=== PATIENT | female | born 2000 | race Caucasian/White ===

== ENCOUNTER 2021-03-11 20:48 | Emergency (ER) | payer OTHER, MEDICAID, SELFPAY ==
--- NOTE | ~2021-03-11 | CT_ITS ---
EXAMINATION: CT abdomen pelvis w con INDICATION: Right lower abdominal pain TECHNIQUE: Computed tomographic images of the abdomen and pelvis were obtained after the administrati on of 100 cc of Omnipaque 350 intravenous contrast. The dose-length product (DLP) was 1538.48 mGy-cm. Automated exposure control and iterative reconstruction technique were employed. COMPARISON: None available FINDINGS: The lung bases are clear. The heart size is normal. The gallbladder is surgically absent. T he liver, spleen, pancreas, and adrenal glands are normal. The kidneys are unremarkable. The appendix is normal. No pathologically enlarged abdominal or pelvic lymph nodes are identified. There is no fr ee intraperitoneal gas or evidence of bowel obstruction. Cysts of the left ovary measure up to 4.4 cm . There is mild lumbar spondylosis. A small fat-containing umbilical hernia is noted. IMPRESSION: 1. No CT correlate for the patient's symptoms. Reviewed, dictated and finalized at location A.
[2021-03-11 20:55] VITALS: BP 149/98; PULSE 107; RESP 22; TEMP 36.6; O2SAT 98
[2021-03-11 21:35] LABS: Basophils Absolute Auto 0.1 K/mm3 (0.0-0.1); Basophils Percent Auto 0.5 % (0.2-1.2); Eosinophils Absolute Auto 0.2 K/mm3 (0-0.3); Eosinophils Percent Auto 1.7 % (0-4.4); Hematocrit 38.8 % (37.0-47.0); Hemoglobin 12.8 g/dL (12.0-15.0); Immature Granulocyte Absolute 0.06 K/mm3 (0.00-0.031); Immature Granulocyte Percent A 0.6 % (0-0.5); Lymphocytes Absolute Auto 2.37 K/mm3 (0.9-3.2); Lymphocytes Percent Auto 24.1 % (18.3-44.2); Mean Corpuscular Hemoglobin 28.6 pg (26-34); Mean Corpuscular Volume 86.6 fl (80-100); Mean Platelet Volume 9.1 fl (7.4-10.4); Monocytes Absolute Auto 0.7 K/mm3 (0.1-0.6); Monocytes Percent Auto 6.6 % (2.6-8.5); Neutrophils Absolute Auto 6.5 K/mm3 (1.3-6.7); Neutrophils Percent Auto 66.5 % (45.5-73.1); Platelet Count Result 276 k/mm3 (150-375); Red Blood Count 4.48 M/mm3 (4.2-5.4); Red Cell Distribution Width 13.4 % (11.5-14.5); White Blood Count 9.8 K/mm3 (4.5-10.0)
[2021-03-11 21:48] LABS: Alanine Aminotransferase 19 U/L (4-35); Albumin Level 4.1 g/dL (3.5-5.1); Alkaline Phosphatase 65 U/L (38-126); Anion Gap 10 mmol/L (8-16); Aspartate Amino Transferase 22 U/L (14-36); Bilirubin,Total 0.3 mg/dL (0.2-1.3); Blood Urea Nitrogen 11 mg/dL (7-17); Calcium 8.7 mg/dL (8.4-10.2); Carbon Dioxide 22 mmol/L (22-30); Chloride 108 mmol/L (98-107); Estimated CRCL calculation 163 ml/min; Estimated Glomerular Filt Rate > 60; Glucose 136 mg/dL (65-110); Lipase 47 U/L (23-300); Potassium 3.7 mmol/L (3.4-5.0); Sodium 140 mmol/L (137-145)
[2021-03-11 21:54] LABS: Add Urine Microscopic? YES; Appearance Urine Clear (Clear); Bacteria Urine Trace /hpf; Bilirubin Urine Negative (Negative); Blood Urine 3+ (Negative); Color Urine Yellow (Yellow); Glucose Urine UA Negative (Negative); Ketones Urine Negative (Negative); Leukocyte Esterase Ur Negative LEU/UL (Negative); Mucus Urine Rare /lpf; Nitrate Urine Negative (Negative); Protein Urine 1+ mg/dL (Negative); Squamous Epithelial Cell Urine Many /hpf (Few); Urobilinogen Urine Negative mg/dL (<2.0)
[2021-03-11 21:57] LABS: Specific Grav Ur 1.032 (1.001-1.035)
--- NOTE | 2021-03-11 22:22 | ED.ABDPAIN ---
HPI - Abdominal Pain General Chief Complaint: Abdominal Pain Stated Complaint: LRQ abd pain, nausea Time Seen by Provider: 03/11/21 22:03 Source: patient Mode of arrival: ambulatory Limitations: no limitations History of Present Illness HPI narrative: This is a 21 year old female who presents for evaluation of right lower abdominal pain. Patient states she has had sharp right lower abdominal pain constantly for 3 days. She is currently on her menstrual cycle so she thought her pain was due to that but her pain is getting worse. She had nausea today but denies vomiting, diarrhea. She reports mild pain with urination. She took ibuprofen 400 mg 3 hours ago and her pain is currently 5/10. Related Data Home Medications Medication Instructions Recorded Confirmed aripiprazole mg 03/11/21 drospirenone-ethinyl estradiol tablet 03/11/21 sertraline mg 03/11/21 Allergies Allergy/AdvReac Type Severity Reaction Status Date / Time Penicillins Allergy Severe hives Verified 03/11/21 22:16 Review of Systems Review of Systems: All systems reviewed & are unremarkable except as noted in HPI and below PMFSH Past Medical History Medical History (Updated 03/12/21 @ 01:03 by Milvia Rosas MD) SVT (supraventricular tachycardia) Surgical History Surgical History (Updated 03/11/21 @ 22:28 by Milvia Rosas MD) Hx of cholecystectomy Social History Social History (Updated 03/11/21 @ 22:28 by Milvia Rosas MD) Smoking status: Never smoker Exam Const: General: alert Nutritional Appearance: obese Orientation/consciousness: patient oriented x3 Eyes: Pupils: Equal, round and reactive pupils present EOM: EOMs intact bilaterally Chest: Chest palpation & inspection: normal inspection of the chest Resp: Effort & Inspection: normal respiratory effort and no retractions Auscultation: clear to auscultation bilaterally Cardio: Rate: regular rate Rhythm: regular rhythm Heart sounds: no murmurs GI: GI Palp: Yes Soft to palpation, Yes Tenderness to palpation present (GI) (RLQ), No Guarding due to palpation present (GI) and No Rigid due to palpation Auscultation: normal bowel sounds Back/Spine/Pelvis: Back: no CVA tenderness Skin: General skin exam: normal color Neuro: General: patient oriented x3, moves all extremities and CN's II-XI intact bilaterally Psych: Mental Status: mental status grossly normal Affect: normal affect Course Reevaluation(s) Reevaluation #1: I Discussed with patient CT shows left ovarian cyst and she will need to follow up with her OBGYN. Date: 03/12/21 Time: 01:00 Vital Signs Vital signs: Vital Signs Temperature 97.8 F 03/11/21 20:55 Pulse Rate 107 H 03/11/21 20:55 Respiratory Rate 22 H 03/11/21 20:55 Blood Pressure 149/98 H 03/11/21 20:55 Pulse Oximetry 98 03/11/21 20:55 Temperature 98.7 F 03/11/21 22:24 Pulse Rate 99 03/11/21 23:23 Respiratory Rate 18 03/11/21 23:23 Blood Pressure 113/63 03/11/21 23:23 Pulse Oximetry 99 03/11/21 23:23 MDM - Abdominal Pain Lab Data Attestation: I reviewed the patient's lab results. Result diagrams: 03/11/21 21:29 03/11/21 21:29 Labs: Lab Results 03/11/21 03/11/21 03/11/21 Range/Units 21:29 21:29 21:35 WBC 9.8 (4.5-10.0) K/mm3 RBC 4.48 (4.2-5.4) M/mm3 Hgb 12.8 (12.0-15.0) g/dL Hct 38.8 (37.0-47.0) % MCV 86.6 (80-100) fl MCH 28.6 (26-34) pg MCHC 33.0 (32-36) g/dl RDW 13.4 (11.5-14.5) % Plt Count 276 (150-375) k/mm3 MPV 9.1 (7.4-10.4) fl Immature Gran % (Auto) 0.6 H (0-0.5) % Neut % (Auto) 66.5 (45.5-73.1) % Lymph % (Auto) 24.1 (18.3-44.2) % [place] % (Auto) 6.6 (2.6-8.5) % Eos % (Auto) 1.7 (0-4.4) % Baso % (Auto) 0.5 (0.2-1.2) % Lymph # (Auto) 2.37 (0.9-3.2) K/mm3 [place] # (Auto) 0.7 H (0.1-0.6) K/mm3 Eos # (Auto) 0.2 (0-0.3) K/mm3 Baso # (Auto) 0.1 (0.0-0.1) K/
[2021-03-11 22:24] VITALS: BP 162/80; PULSE 102; RESP 18; TEMP 37.1; O2SAT 99
[2021-03-11] MEDS: KETOROLAC 30 MG/ML VIAL (*BKC) IV PUSH (22:36)
[2021-03-11] MEDS: SODIUM CHLORIDE 0.9% IV 1,000 ML 999 ML IV CONT (22:36)
[2021-03-11] MEDS: ONDANSETRON INJ 4 MG/2 ML VIAL IV PUSH (22:36)
[2021-03-11 23:02] VITALS: BP 145/84; PULSE 99; RESP 18; O2SAT 99
[2021-03-11 23:23] VITALS: BP 113/63; PULSE 99; RESP 18; O2SAT 99
--- NOTE | 2021-03-11 23:23 | PC.NURSE ---
Assumed care of pt at this time. Pt alert and upright on stretcher, rates pain at 4/10. Pt and family updated on POC.
[2021-03-12 01:00] VITALS: BP 117/67; PULSE 92; RESP 16; O2SAT 99
[2021-03-12 01:20] VITALS: BP 115/69; PULSE 91; RESP 18; O2SAT 99
== END 2021-03-12 01:25 | disposition home or self-care (01) ==
PROVIDERS: Emergency Medicine; Emergency Provider General Practice
DX: N83.202 Unspecified ovarian cyst, left side (principal)
CPT/HCPCS: 36415; 74177; 80053; 81001; 81025; 83690; 85025; 96361; 96374; 96375; 99284; J1885; J2405; J7030; Q9967

== ENCOUNTER 2021-06-06 09:34 | Emergency (ER) | payer OTHER, MEDICAID, SELFPAY ==
--- NOTE | ~2021-06-06 | XR_ITS ---
EXAMINATION: XR chest 1V portable DATE: 06/06/2021 10:04 INDICATION: Cough and shortness of breath TECHNIQUE: frontal view of the chest was obtained. COMPARISON: Chest radiograph dated 09/18/2018 FINDINGS: The lungs remain clear with no focal airspace opacities, pulmonary edema, pleural effusion or pneumot horax. The cardiomediastinal silhouette is normal. Visualized bones and soft tissues are unremarkable . IMPRESSION: 1. Normal chest radiograph. Reviewed, dictated and finalized at location A. OR PROJECT MANAGER IMPRESSION: 1. Normal chest radiograph.
[2021-06-06 09:38] VITALS: BP 157/113; PULSE 105; TEMP 37.3; O2SAT 97
--- NOTE | 2021-06-06 09:56 | ED.URI ---
HPI - URI/Sore Throat General Chief Complaint: Upper Respiratory Infection Stated Complaint: covid symptoms Time Seen by Provider: 06/06/21 09:53 Source: patient Mode of arrival: ambulatory Limitations: no limitations History of Present Illness HPI Narrative: Patient presents with coughing, sore throat, body aches, not feeling well, hot and cold feeling. Started yesterday. Patient is not vaccinated for Covid. Patient works in the pain. Related Data Home Medications Medication Instructions Recorded Confirmed aripiprazole mg 03/11/21 drospirenone-ethinyl estradiol tablet 03/11/21 sertraline mg 03/11/21 Allergies Allergy/AdvReac Type Severity Reaction Status Date / Time Penicillins Allergy Severe hives Verified 03/11/21 22:16 Review of Systems Review of Systems: CONSTITUTIONAL: Denies fever, chills, or sweats. EYES: Denies visual changes, redness, or discharge. ENT: Denies rhinorrhea, congestion, sore throat, or otalgia. CARDIOVASCULAR: Denies chest pain, palpitations, or edema. RESPIRATORY: Denies cough or dyspnea. GASTROINTESTINAL: Denies abdominal pain, nausea, vomiting, or diarrhea. GENITOURINARY: Denies dysuria or hematuria. SKIN: Denies rash or itching. MUSCULOSKELETAL: Denies back pain, joint pain, or myalgia. NEUROLOGIC: Denies headache, numbness, or weakness. PSYCHIATRIC: Denies anxiety or depression. PMFSH Past Medical History Medical History SVT (supraventricular tachycardia) Surgical History Surgical History Hx of cholecystectomy Social History Social History Smoking status: Never smoker Exam Narrative: General appearance: Well-developed, well-nourished Skin: Normal color Head: Normocephalic, nontraumatic Eyes: Clear conjunctiva ENT: Oropharynx normal, ears normal, nose normal Neck: Supple, nontender Chest and respiratory: Airway patent, no respiratory distress, no accessory muscle use Heart: Regular rate/rhythm Abdomen: Soft, nontender, no organomegaly, quiet bowel sounds Vascular: Normal peripheral pulses, normal capillary refill. Musculoskeletal: Normal range of motion, nontender back Neurologic: Alert and oriented ?3, CATERING COOK is normal as tested, no gross motor deficit Course Course Emergency Course: Stable Vital Signs Vital signs: Vital Signs Temperature 37.3 C 06/06/21 09:38 Pulse Rate 105 H 06/06/21 09:38 Blood Pressure 157/113 H 06/06/21 09:38 Pulse Oximetry 97 06/06/21 09:38 Temperature 37.3 C 06/06/21 09:38 Pulse Rate 105 H 06/06/21 09:38 Blood Pressure 157/113 H 06/06/21 09:38 Pulse Oximetry 97 06/06/21 09:38 MDM - URI/Sore Throat MDM Narrative Medical decision making narrative: Upper respiratory viral infection is my concern. Covid test ordered. Differential Diagnosis Differential diagnosis: Likely upper respiratory infection Imaging Data Radiologist's impression: Impressions Chest X-Ray 06/06/21 10:08 IMPRESSION: 1. Normal chest radiograph. Critical Care Time Critical Care Time Critical Care Time: No Discharge Plan Discharge Clinical Impression: Upper respiratory infection Qualifiers: URI type: unspecified URI Qualified Code(s): J06.9 - Acute upper respiratory infection, unspecified Patient Disposition: Home, Self-Care Condition: Stable Instructions: Antibiotic Form, Upper Respiratory Infection (ED) Additional Instructions: Return if symptoms are worsening , call your family physician for appointment, take Tylenol as as needed for aches and pain, continue home medi
[2021-06-06 10:37] VITALS: BP 142/93; PULSE 104; RESP 18; O2SAT 95
[2021-06-07 02:02] LABS: SARS-CoV-2 RNA PCR Negative
== END 2021-06-06 10:38 | disposition home or self-care (01) ==
PROVIDERS: Emergency Provider Emergency Medicine
DX: J06.9 Acute upper respiratory infection, unspecified (principal); Z20.822 Contact with and (suspected) exposure to COVID-19
CPT/HCPCS: 71045; 87804; 99283; C9803; U0003; U0005

== ENCOUNTER 2022-09-19 00:32 | Day surgery (SDC) | payer BC, OTHER, SELFPAY ==
[2022-09-10 15:15] VITALS: BMI 54.8
--- NOTE | 2022-09-10 15:22 | PC.NURSE ---
Report to the Outpatient Waiting Room, entrance under the green pavilion located off [facility], at time 0600 on date 09/19/22. Planned Procedure Time: 0730. Time changes happen often and if your time is changed the preop area will call you the afternoon before. - You and your visitor will be asked to self-screen and do not enter if you have any COVID symptoms. - Only one visitor is requested with a max of two and NO children visitors are allowed at this time. - The patient visitor may be requested to leave or wait in car when not with patient due to distancing restrictions. - A mask is optional within the hospital at this time. Patients may have clear liquids (water, carbonated beverages, clear teas, apple juice) until 3 hours prior to surgery with a maximum of 20 ounces. - No food from midnight until time of surgery Take the following medications with a SIP of water the morning of surgery: LEXAPRO, ABILIFY DO NOT STOP ANY OF YOUR OTHER PRESCRIPTION MEDICATIONS PRIOR TO SURGERY?EXCEPT THE FOLLOWING Medications to discontinue per physician: N/A Date to take last dose: N/A Please no make-up, nail lithuanian, hairspray, perfume, deodorant, or body powder the day of surgery. No jewelry (including any body piercings) or valuables the day of surgery, leave them at home. Please take a shower or bath the night before, or the morning of, surgery with an antibacterial soap. Wear comfortable, loose fitting clothing. - Jewelry must be removed prior to entering the operating room. Rings and piercings that are not removed may be cut off. - The hospital will not accept responsibility for valuables. - Please leave all valuables, including medications, at home the day of surgery. If you are going home after surgery, a licensed front end loader driver must drive you home. - NO public transportation without another adult if you receive anesthesia. - We recommend that an adult stay with you for 24 hours following discharge. - We also recommend that you do not drive, make important decision, drink alcoholic beverages, or take any drugs that were not prescribed by your health care provider for at least 24 hours after your discharge time. Follow any additional instructions given to you from your surgeon. If you or anyone in your household have experienced Covid symptoms in the past week, please notify your surgeon or the nurse liaison at the phone number below for possible testing. Telephone instructions given to CATHY LOUISE and asked if any additional questions and then verbalized understanding. Patient advised to call surgeon office or pre surgery nurse liaison [phone] if any additional questions.
[2022-09-19] VITALS (13 sets, daily range): BP systolic 118–158; BP diastolic 70–98; PULSE 72–120; RESP 12–20; TEMP 36.5–37.2; O2SAT 94–100
[2022-09-19] MEDS: KETOROLAC 15 MG/ML VIAL (*BKC) IV PUSH (06:30)
[2022-09-19] MEDS: SCOPOLAMINE 1.5 MG PATCH TRANSDERM (06:30)
[2022-09-19] MEDS: LACTATED RINGERS 1,000 ML 30 ML IV CONT ×2 (06:30→09:27)
[2022-09-19] MEDS: ACETAMINOPHEN 500 MG TABLET 1000 MG PO (06:30)
--- NOTE | 2022-09-19 07:12 | WPDANESEPPF ---
Anes - Initial Pre Proc Eval Procedure: Operation Date: 09/19/22 07:30 Proposed Procedures p Laparoscopic Right Ovarian Cystectomy - Ivan Helms MD Date/Time: 09/19/22 07:12 Surgeon: Ivan Helms MD Pre Op Diagnosis: cyst of ovary Patient Data Age: 22 Gender: F Height: 1.7 m Weight: 158.8 kg Allergies Allergy/AdvReac Type Severity Reaction Status Date / Time Penicillins Allergy Severe hives Verified 09/19/22 07:09 Home Medications Medication Instructions Recorded Confirmed Type aripiprazole 15 mg tablet 15 mg PO DAILY 09/10/22 09/19/22 History drospirenone (contraceptive) 4 mg 1 tablet PO DAILY 09/10/22 09/10/22 History (28) tablet escitalopram oxalate 10 mg tablet 10 mg PO DAILY 09/10/22 09/19/22 History Patient hx anesthesia problems: post op nausea/vomiting Family hx anesthesia problems: none Results Review: All pre-operative results and documents have been reviewed as part of the pre-operative evaluation. [facility] Past Medical History Medical History SVT (supraventricular tachycardia) Surgical History Surgical History Hx of cholecystectomy Social History Social History Smoking status: Never smoker Alcohol intake: current Drinks per week: 2 Substance use: current Substance use type: marijuana Living arrangements: with friend(s) Additional living arrangements comments: BOYFRIEND Spiritual care concerns: No Anes - Eval Final PreProcedure Day of Procedure 09/19/22 07:12 Patient weight: super morbidly obese Heart: regular rate and rhythm Lungs: clear to auscultation Airway: Mallampati scale class III Neurological: alert and oriented Last oral intake: >/= 8 hours ASA classification: III Emergent: no Anesthetic plan: proceed Anesthesia type and monitoring: general ETT and standard monitoring Results Review: All pre-operative results and documents have been reviewed as part of the pre-operative evaluation. Informed Consent: The patient's anesthetic plan and its attendant risks and benefits were discussed with the patient/family/POA. Questions were solicited and answers provided to the satisfaction of the patient/family/POA.
--- NOTE | 2022-09-19 07:19 | WPDHPUPDATE1 ---
History and Physical Update Update Date/Time: 09/19/22 07:19 History and Physical has been reviewed, including an updated exam of the patient. There are NO changes in the patient's condition. Risks, benefits, and alternatives have been discussed and questions answered. Patient agrees to proceed with procedure.
[2022-09-19] MEDS: fentaNYL CITRATE INJ (*CRX) 100 MCG/2 ML VIAL 25 MCG IV PUSH ×8 (09:49→11:26)
--- NOTE | 2022-09-19 09:52 | SUR.PHASEI ---
0952: Simple mask removed.
--- NOTE | 2022-09-19 09:53 | W.PM.PROC2 ---
Procedure Note - Detailed Date of Procedure 09/19/22 Pre-op Diagnosis cyst of ovary , pelvic pain Post-op Diagnosis Same (Large left hydrosalpinx, left ovarian cyst, scarring of the right ovary, and adhesions of the pelvis.) Procedure Performed left ovarian cystectomy, left salpingectomy, adhesiolysis -1 hour, chromopertubation Surgeon Ivan Helms MD Anesthesia General Indications Pelvic pain Findings large left ovarian cyst, large left hydrosalpinx, clubbing of the right fallopian tube, adhesions between the rectum and left adnexa and uterus, some very dense adhesions. Occluded right fallopian tube Description of Procedure The patient was taken to the operating room. She was prepped and draped in the dorsal lithotomy position after induction general anesthesia. A 5 mm incision was made with a scalpel on the abdominal skin in the left upper quadrant of the abdomen. A 5 mm trocar was inserted into the intra-abdominal cavity under direct visualization the scope. In the same fashion a 11 mm left lower quadrant trocar was inserted and a 5 mm infraumbilical trocar was inserted. left salpingectomy was performed using LigaSure cautery and adhesiolysis was performed for 1 hour using blunt and sharp dissection. Using scissors cautery. Left ovarian cystectomy was performed using sharp and blunt dissection, cautery was also applied. hematuria min Interceed was placed over the left adnexa. Left ureter was dissected from pelvic brim to the uterine artery. The pelvis was irrigated. The pneumoperitoneum was reduced. The trocars were removed. Skin was closed with subcuticular 4 micro. The patient's incisions were covered with Dermabond. She was taken recovery room in stable condition. Sponge lap and needle counts were correct x2. Estimated Blood Loss 50 Urine Output -20.0 Complications No immediate complications Condition Stable Disposition Same day
[2022-09-19] MEDS: HYDROmorphone HCL INJ (*CRX) 1 MG/ML SYR 0.5 MG IV PUSH ×2 (10:24→10:29)
[2022-09-19] MEDS: oxyCODONE HCL (*CRX) 5 MG TAB IR PO (11:04)
--- NOTE | 2022-09-19 12:51 | SUR.PHASEII ---
1220 - pt teary eyed. pt denies pain at this time. pt wants stay for awhile longer
== END 2022-09-19 13:07 | disposition home or self-care (01) ==
PROVIDERS: Visit Provider Obstetrics & Gynecology
PROC: (CPT 49320; principal; 2022-09-19 07:30)
DX: N83.202 Unspecified ovarian cyst, left side (principal); N70.11 Chronic salpingitis; N83.8 Other noninflammatory disorders of ovary, fallopian tube and broad ligament; N73.6 Female pelvic peritoneal adhesions (postinfective); N97.1 Female infertility of tubal origin; F12.90 Cannabis use, unspecified, uncomplicated; E66.01 Morbid (severe) obesity due to excess calories; Z68.43 Body mass index [BMI] 50.0-59.9, adult
CPT/HCPCS: 58661; 58662; 88302; 88305; A9270; J1100; J1170; J1885; J2250; J2405; J2704; J2710; J3010; J7030; J7120; Q9968

== ENCOUNTER 2023-01-27 14:05 | Emergency (ER) | payer BC, OTHER, SELFPAY | END 2023-01-27 14:35 | disposition home or self-care (01) | PROVIDERS: Emergency Provider Nurse Practitioner | DX: N39.0 Urinary tract infection, site not specified (principal) | CPT/HCPCS: 81003; 87086; 99213; G0463 ==

== ENCOUNTER 2023-07-22 15:07 | Emergency (ER) | payer BC, OTHER, SELFPAY ==
[2023-07-22 15:23] VITALS: BP 129/92; PULSE 82; RESP 16; TEMP 36.5; O2SAT 100
--- NOTE | 2023-07-22 15:25 | ED.FEMALEGU ---
HPI - Female Genitourinary General Chief complaint: Urogenital-Female Stated complaint: uti symptoms Time Seen by Provider: 07/22/23 15:40 Source: patient and RN notes reviewed Mode of arrival: ambulatory Limitations: no limitations History of Present Illness HPI Narrative: [age] old female presents concern for 4 day history of vaginal itching, soreness in her vaginal area. She denies discharge. She denies dysuria, frequency, urgency. Denies nausea, vomiting, abdominal pain, fever, chills, sweats. Reports chronic back pain. MD elicited complaint: genital itching Related Data Home Medications Medication Instructions Recorded Confirmed aripiprazole 15 mg tablet 15 mg PO DAILY 09/10/22 07/22/23 escitalopram oxalate 10 mg tablet 10 mg PO DAILY 09/10/22 07/22/23 Allergies Allergy/AdvReac Type Severity Reaction Status Date / Time Penicillins Allergy Severe hives Verified 07/22/23 15:17 Review of Systems Review of Systems: CONSTITUTIONAL: Denies malaise, chills, sweats, or fever. CARDIOVASCULAR: Denies chest pain, palpitations, or edema. RESPIRATORY: Denies cough or dyspnea. GASTROINTESTINAL: Denies abdominal pain, nausea, vomiting, diarrhea GENITOURINARY: Denies dysuria, frequency, urgency, suprapubic pressure. Denies flank pain or hematuria. Reports vaginal itching and discomfort SKIN: Denies rash or itching. MUSCULOSKELETAL: Reports chronic back pain. Denies myalgia. All systems reviewed & are unremarkable except as noted in HPI and below PMFSH Past Medical History Medical History SVT (supraventricular tachycardia) Surgical History Surgical History Hx of cholecystectomy Social History Social History Smoking status: Never smoker Alcohol intake: current Drinks per week: 2 Substance use: current Substance use type: marijuana Living arrangements: with friend(s) Additional living arrangements comments: BOYFRIEND Spiritual care concerns: No Comments At time of signature, agree with nursing past medical, surgical, social and family history. There is no relevant family history pertinent to the presenting complaint Exam Narrative: GENERAL: Well-appearing, well-nourished, and in no acute distress. HEAD: Normocephalic. EYES: PERRLA, conjunctivae clear. NECK: Supple. No lymphadenopathy CHEST: Clear to auscultation. No respiratory distress. HEART: Regular rate and rhythm. SKIN: Warm, dry, no rash. NEURO: Alert and oriented x3. PSYCH: Normal mood and affect Course Course Emergency Course: Patient is aware of diagnosis, understands and agrees to treatment plan. Anticipatory guidance given. Patient agrees to follow-up as directed and is aware of reasons to seek care at the emergency department. Portions of this record may have been created with voice recognition software Level of Care: Express Care Visit Vital Signs Vital signs: Vital Signs Temperature 97.7 F 07/22/23 15:23 Pulse Rate 82 07/22/23 15:23 Respiratory Rate 16 07/22/23 15:23 Blood Pressure 129/92 H 07/22/23 15:23 Pulse Oximetry 100 07/22/23 15:23 Temperature 97.7 F 07/22/23 15:23 Pulse Rate 82 07/22/23 15:23 Respiratory Rate 16 07/22/23 15:23 Blood Pressure 129/92 H 07/22/23 15:23 Pulse Oximetry 100 07/22/23 15:23 Reviewed. MDM - Female Genitourinary MDM Narrative Medical decision making narrative: Exam findings and UA show no acute concerns or changes; patient is non-toxic appearing and is in no distress. Patient is appropriate for outpatient treatment and follow-up. Differential Diagnosis Differential diagnosis: Likely urinary tract infection and cystitis Critical Care Time Critical Care Time Critical Care Time: No Discharge Plan Discharge Clinical Impression: Vaginal itching Patient Disposit
== END 2023-07-22 15:53 | disposition home or self-care (01) ==
PROVIDERS: Emergency Provider Nurse Practitioner
DX: N89.8 Other specified noninflammatory disorders of vagina (principal); F12.90 Cannabis use, unspecified, uncomplicated
CPT/HCPCS: 81003; 87086; 99213; G0463

== ENCOUNTER 2024-10-21 15:54 | Emergency (ER) | payer BC, OTHER, SELFPAY ==
[2024-10-21 16:07] VITALS: BP 146/76; PULSE 92; RESP 16; TEMP 36.6; O2SAT 100
--- NOTE | 2024-10-21 16:12 | ED.URI ---
HPI - URI/Sore Throat General Chief Complaint: Upper Respiratory Infection Stated Complaint: throat pain Time Seen by Provider: 10/21/24 16:12 Source: patient, RN notes reviewed and old records reviewed Mode of arrival: ambulatory Limitations: no limitations History of Present Illness HPI Narrative: 24 year old female who presents to [facility] care with complaints of 1.5 weeks of some bilateral ear pain and a few days of sore throat. Patient reports that she has not noted any fevers, chills or body aches or any cough. Patient reports that she has taken some Tylenol for her pain. MD elicited complaint: sore throat and other (ear pain) Pertinent past history: tympanostony tubes (as child) and other (tonsillectomy) Onset (ago): week(s) (1.5 ears, few days sore throat) Pain scale (0-10): 4 Able to tolerate fluids by mouth: Yes Treatments prior to arrival: acetaminophen Related Data Home Medications ?Medication ?Instructions ?Recorded ?Confirmed ?Last Taken ?Type aripiprazole 15 mg tablet 15 mg PO DAILY 09/10/22 07/22/23 09/19/22 05:00 History escitalopram oxalate 10 mg tablet 10 mg PO DAILY 09/10/22 07/22/23 09/19/22 05:00 History Allergies Allergy/AdvReac Type Severity Reaction Status Date / Time Penicillins Allergy Severe hives Verified 10/21/24 16:05 Review of Systems Review of Systems: CONSTITUTIONAL: Denies malaise, chills, sweats, or fever. EYES: Denies visual changes, redness, or discharge. ENT: Reports rhinorrhea, congestion,no sinus pain,bilateral otalgia and positive for sore throat. CARDIOVASCULAR: Denies chest pain, palpitations, or edema. RESPIRATORY: Reports no cough.? Denies dyspnea. GASTROINTESTINAL: Denies abdominal pain, nausea, vomiting, diarrhea SKIN: Denies rash or itching. MUSCULOSKELETAL: Denies myalgia. NEUROLOGIC: Denies headache. All systems reviewed & are unremarkable except as noted in HPI and below PMFSH Past Medical History Medical History Bipolar disorder UTI (urinary tract infection) Anxiety and depression Hidradenitis suppurativa Hx of migraines SVT (supraventricular tachycardia) Surgical History Surgical History History of loop recorder has been removed History of placement of ear tubes History of tonsillectomy H/O cardiac radiofrequency ablation Hx of cholecystectomy Social History Social History Smoking status: Current every day smoker Tobacco type: e-cigarettes/vaping Alcohol intake: current Drinks per week: 2 Substance use: current Substance use type: marijuana Last use: very seldom Living arrangements: with friend(s) Additional living arrangements comments: BOYFRIEND Gender identity (if verbalized by the patient): Female Spiritual care concerns: No Comments At time of signature, agree with nursing past medical, surgical, social and family history. There is no relevant family history pertinent to the presenting complaint Exam Narrative: GENERAL: Well-appearing, well-nourished, obese and in no acute distress. HEAD: Normocephalic EYES: PERRLA, conjunctivae clear ENT: Nares clear, turbinates edematous and erythematous, clear discharge. Mucous membranes moist.Left TM red and bulging, Right TM pearly ruffin with dull light reflex; no tragal tenderness. Oropharynx erythematous without lesions. Tonsils not present and throat without exudate, no drooling, no hoarseness, no trismus, uvula midline.scant post nasal drainage. NECK: Supple. No lymphadenopathy CHEST: Clear to auscultation, breath sounds equal. No wheezing, rhonchi, rales, or stridor. No respiratory distress, speaks in full sentences no cough noted SAO2 100% on room air. HEART: Regular rate and rhythm. No murmur heard. SKIN: Warm, dry, no rash. NEURO: Alert and oriented x3. PSYCH: Normal mood and affect Course Course Emergency Course: Patient is aware of diagnosis, understands and agrees to treatment plan.? Anticipatory guidance given.? Patient agrees to follow-up as directed and is aware of reasons to seek care at the emergency department. Portions of this record may have been created with voice recognition software Level of Care: Express Care Visit Vital Signs Vital signs: Vital Signs Temperature 36.6 C 10/21/24 16:07 Pulse Rate 92 10/21/24 16:07 Respiratory Rate 16 10/21/24 16:07 Blood Pressure 146/76 H 04/30/25 16:07 Pulse Oximetry 100 10/21/24 16:07 Oxygen Delivery Room Air 10/21/24 16:07 Temperature 36.6 C 10/21/24 16:07 Pulse Rate 92 10/21/24 16:07 Respiratory Rate 16 10/21/24 16:07 Blood Pressure 146/76 H 10/21/24 16:07 Pulse Oximetry 100 10/21/24 16:07 Oxygen Delivery Room Air 10/21/24 16:07 Reviewed MDM - URI/Sore Throat MDM Narrative Medical decision making narrative: Differential diagnosis considered: Smith virus, strep pharyngitis, allergic rhinitis, upper respiratory tract infection, sinusitis, rhinosinusitis, nasopharyngitis. viral pharyngitis, otitis media, otitis externa, pneumonia, bronchitis, viral cough syndrome, viral syndrome, and influenza.? Exam findings show no acute concerns or changes; patient is non-toxic appearing and is in no distress.? Patient is appropriate for outpatient treatment and follow-up. Differential Diagnosis Differential diagnosis: Likely upper respiratory infection, otitis media, viral infection, pharyngitis and other (strep pharyngitis) Medical Records Attestation: I reviewed the patient's medical records. Lab Data Attestation: I reviewed the patient's lab results. Lab results narrative: strep screen negative culture sent Labs: Lab Results 10/21/24 Range/Units 16:17 POC Grp A Strep Screen Negative (Negative) reviewed Critical Care Time Critical Care Time Critical Care Time: No Discharge Plan Discharge Clinical Impression: Acute left otitis media Patient Disposition: Home Condition: Stable Instructions: Antibiotic Form, Ear Infection (GEN) Additional Instructions: Increase fluids especially juices and water [id number] cough and cold medicine of your choice for your symptoms Zyrtec, Claritin or Ellyn daily Tylenol or ibuprofen for any fever pain heat to the face 20-30 minutes 4-6 times a day for pain Salt water gargles, throat lozenges or throat sprays as desired Antibiotic as directed--finished the medication If your symptoms persist, change or worsen significantly before you can contact your personal physician then please, without delay, go to the emergency department for further evaluation. Follow-up with PCP in 7-10 days or sooner if needed Follow up with PCP soon in regards to your blood pressure which is elevated above threshold for referral. Blood pressure above 120/80 may indicate pre-hypertension. 146/76 Patient Language: Citizen Of [place] Prescriptions: New cefdinir 300 mg capsule 300 mg PO Q12H Qty: 20 0RF Rx Instructions: take all doses of medication No Action escitalopram oxalate 10 mg Tablet 10 mg PO DAILY aripiprazole 15 mg Tablet 15 mg PO DAILY Follow-up/Referrals: UNKNOWN,DOCTOR [Primary Care Provider] - Time of Disposition: 16:31 Quality Ирина Coma Scale Eyes: Open Verbal: Oriented and Alert Motor: Follows Commands Graham Coma Total Score: 15
[2024-10-21 16:19] LABS: EDSTREPNEGPOS1 Negative (Negative)
--- OUTSIDE RECORDS SUMMARY | 2024-10-21 16:30 | XMS_ITS | Clinical Summary ---
Author Organization [facility] Address [address] [place] [address] Care Team Providers Care Maintenance Helper Name Role Phone Kelle Johnston Primary Care Provider [phone] Desiree Gagnon MD Unavailable [phone] Allergies Active Allergy Reactions Criticality Noted Date Comments Penicillins Hives Medium Medications topiramate (TOPAMAX) 25 mg capsule Take 25 mg by mouth 2 (two) times a day Active TiZANidine (ZANAFLEX) 4 mg capsule Take 4 mg by mouth 3 (three) times a day Active famotidine (PEPCID) 20 mg tablet TK 1 T PO D 0 09/18/2018 Active Active Problems Problem Noted Date Diagnosed Date Vestibular migraine 10/17/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 Supraventricular tachycardia 10/08/2014 Family History Medical History Relation Name Comments Hyperlipidemia Maternal Grandfather Famil y history of hypercholesterolemia - (Added by TW Conv) Hypertension Maternal Grandfather Family history of hypertension - (Added by TW Conv) Cataracts Maternal Grandmother Macular degeneration Mother Relation Name Status Comments Maternal Grandfather Maternal Grandmother Mother Social History Tobacco Use Types Packs/Day Years Used Date Smoking Tobacco: Never Smokeless Tobacco: Never Personal Safety Answer Date Recorded Getting School Help Needed Not on file 08/12 Comments Unknown Sex and Gender Information Value Date Recorded Sex Assigned at Not on file Legal Sex Female 1:59 AM FACE WORKER Gender Identity Not on file Sexual Orientation Not on file Occupation Industry Job Start Date Job End Date Student [employer] Not on file Not on file Not on file Obstetrics History Last Filed Vital Signs Vital Sign Reading Time Taken Comments Blood Pressure 137/76 10/13/2014 1:09 PM CDT Pulse 80 10/13/2014 1:09 PM CDT Temperature - - Respiratory Rate - - Oxygen Saturation - - Inhaled Oxygen Concentration - - Weight 110 kg (242 lb 8.1 oz) 07/15/2015 4:06 PM FACE WORKER Height 167 cm (5' 5.75 ) 07/15/2015 4:06 PM FACE WORKER Body Mass Index 39.44 07/15/2015 4:06 PM FACE WORKER Plan of Treatment Health Maintenance Due Date Last Done Comments Cervical Cancer Screening 1999 Depression Screening 1999 Hepatitis C Screening 1999 Regular Well Visit/Exam 18-64 2017 DTaP/Tdap/Td Vaccine (7 - Td or Tdap) 02/01/2020 01/31/2010, 01/26/2004, 05/13/2000, Additional history exists Covid-19 Vaccine (2023-2 5 season) 2024 09/03/2020, 07/30/2020 Influenza Vaccine (#1) 2024 9, 04/02/2019, 03/28/2018, Additional history exists Hepatitis B Screening Completed 1999 , 1999, 1999 Pneumococcal vaccine <65 Completed 005, 05/13/2000, 01/26/2000, Additional history exists HPV Vaccines Completed 06/05/2010, 01/22, 11/28/2009 Varicella Vaccines Completed 04/28/2014, 01/26/2000 [facility] [employer] Care Teams Maintenance Helper Relationship Specialty Start Date End Date Kelle Johnston [address] [place] [id number] PCP - General Family Medicine 04/29/18 Desiree Gagnon MD [address] [address] Referring Physician Neurology 10/17/18
--- OUTSIDE RECORDS SUMMARY | 2024-10-21 16:31 | XMS_ITS | Referral Summary ---
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 Supraventricular tachycardia 10/08/2014 Social History Tobacco Use Types Packs/Day Years Used Date Smoking Tobacco: Never Smokeless Tobacco: Never Personal Safety Answer Date Recorded Getting School Help Needed Not on file 08/12 Comments Unknown Sex and Gender Information Value Date Recorded Sex Assigned at Not on file Legal Sex Female 1:59 AM DIAMOND ASSORTER Gender Identity Not on file Sexual Orientation Not on file Occupation Industry Job Start Date Job End Date Student [employer] Not on file Not on file Not on file Last Filed Vital Signs Vital Sign Reading Time Taken Comments Blood Pressure 137/76 10/13/2014 1:09 PM CDT Pulse 80 10/13/2014 1:09 PM CDT Temperature - - Respiratory Rate - - Oxygen Saturation - - Inhaled Oxygen Concentration - - Weight 110 kg (242 lb 8.1 oz) 07/15/2015 4:06 PM DIAMOND ASSORTER Height 167 cm (5' 5.75 ) 07/15/2015 4:06 PM DIAMOND ASSORTER Body Mass Index 39.44 07/15/2015 4:06 PM DIAMOND ASSORTER Plan of Treatment Not on file Insurance [facility] [employer] Address: [address] [address] [employer] [place] [employer] [facility] [employer] Address: [address] [address] Care Teams Water Regulator And Valve Repairer Relationship Specialty Start Date End Date Kelle Johnston [address] [place] [phone] PCP - General Family Medicine 04/29/18 Desiree Gagnon MD [address] [place] [id number] Referring Physician Neurology 10/17/18
--- OUTSIDE RECORDS SUMMARY | 2024-10-21 16:31 | XMS_ITS | Data Portability ---
Author Organization [facility] [place] Address [address] [place] [place] [address] [place] [address] Assessment No assessment recorded. Plan of Treatment Reminders Order Date Submit Date Provider Last Modified By Organization Details Last Modified Time Details Appointments None recorded. Lab None recorded. Referral None recorded. Procedures None recorded. Surgeries laparoscopi c ovarian cystectomy (SURG) 2021 023 [facility] [place], [address], [place], [address], 19:00:47 Imaging US, transvagina l 2021 022 [email or web address] [place], [address], [address], [place], [address], 17:59:03 Medication Orders None recorded. Patient TargetsNo targets recorded. Patient InstructionsNo instructions recorded. Reason for Referral None Reported. Results Created Date Observation Date Name Description Value Unit Range Abnormal Flag Note LastModifiedBy Organization Detail LastModifiedTime 05/21/2005/21/2022 US, trans vagin al No observ ation record ed. [email or web address] [place] [address], [place], [address], 05/21/2022 17:49:55 05/21/20 22 05/21/2022 US, trans vagin al No observ ation record ed. [email or web address] [address] [address], [place], [address], 05/21/2022 22:21:37 Result Notes None recorded. Procedures Surgical History Date Name Laterality Status Provider Name and Address Organization Details Recorded Time 09/20/19 23 LAPAROSCOPIC OVARIAN CYSTECTOMY (SURG) completed [facility] 09/27/2022 11:10:31 09/20/19 23 LAPAROSCOPIC OVARIAN CYSTECTOMY (SURG) completed [facility] 09/27/2022 11:10:07 08/25/19 22 Date of Last Pap Smear completed [facility] 10/21/2021 08:50:27 06/24/19 21 fluoroscopy of heart for checking of position of cardiac monitoring implant position completed [facility] 10/21/2021 12:31:52 06/24/19 20 Unlisted px femur/knee completed [facility] 10/21/2021 12:31:23 06/24/19 20 cholecystectomy completed [facility] 10/21/2021 12:31:37 06/24/19 15 procedure on forearm completed [facility] 10/21/2021 12:32:25 06/24/19 04 Tonsillectomy completed [facility] 10/21/2021 12:30:30 Tonsillectomy completed Jocelin Anderson [facility] 12/12/2021 13:37:53 Imaging Results Imaging Date Name Status LastModified by Organization Details LastModified Time 05/21/2022 US, transvaginal completed [email or web address] [place] [address], [place], [address], 05/21/2022 17:49:55 05/21/2022 US, transvaginal completed [email or web address] [address], [place], [address], 05/21/2022 22:21:37 Procedure Notes None recorded. Medical Equipment None Reported. Allergies Allergen ID Allergen Name Allergen Category Reaction Reaction Severity Criticality Documentation Date Start Date Code Code System Note Provider Name and Address Organization Details Recorded Time Penicilli n Not available hives moderate Not available 08/10/2021 09946 RxNorm Jocelin Anderson [facility] 11:22:25 Medications Name Sig Start Date Stop Date Status Note LastModified by Organization Details LastModified Time clindamycin HCl 300 mg capsule 12/12 completed Not Available Not Available Not Available ibuprofen 800 mg tablet 10/21 completed Not Available Not Available Not Available hydrocodone 5 mg-acetamino phen 325 mg tablet TAKE 1 TABLET BY MOUTH EVERY 4 HOURS NEEDED FOR PAIN active Not Available Not Available No t Available sertraline 100 mg tablet TAKE 2 TABLETS BY MOUTH DAILY active Not Available Not Available No t Available metronidazol e 500 mg tablet TAKE 1 TABLET BY MOUTH EVERY 12 HOURS FOR 7 DAYS active Not Available Not Available No t Available lorazepam 0.5 mg tablet prn active Not Available Not Available Not Available ergocalcifer ol (vitamin D2) 1,250 mcg (50,000 unit) capsule TAKE 1 CAPSULE BY MOUTH EVERY WEEK active Not Available Not Available No t Available escitalopram 10 mg tablet TAKE 1 TABLET BY MOUTH DAILY active Not Available Not Available No t Available aripiprazole 10 mg tablet 10/21 completed Not Available Not Available Not Available aripiprazole 15 mg tablet TAKE 1 TABLET BY MOUTH EVERY DAY active Not Available Not Available No t Available aripiprazole 5 mg tablet 08/24 completed Not Available Not Available Not Available chlorhexidin e gluconate 0.12 % mouthwash 12/12 completed Not Available Not Available Not Available Lo Loestrin Fe 1 mg-10 mcg (24)/10 mcg (2) tablet Take 1 tablet every day by oral route for 90 days. 10/21 completed Not Available Not Available Not Available Nextstellis 3 mg-14.2 mg (28) tablet Take 1 tablet every day by oral route for 90 days. 2021 active Lot: [id number] , Exp Not Available Not Available Not Available Vitals Date Recorded Body height Body mass index (BMI) Body weight Systolic blood pressure Diastolic blood pressure Provider Name and Address Organization Details Last Updated DateTime 05/23/2022 166.37 cm 57.4 kg/m2 069800.3 3 g 137 mm[Hg] 86 mm[Hg] [facility] 2 18:08:12 Date Recorded Body height Body mass index (BMI) Body weight Systolic blood pressure Diastolic blood pressure Provider Name and Address Organization Details Last Updated DateTime 09/12/2022 166.37 cm 56.5 kg/m2 265642.3 7 g 133 mm[Hg] 83 mm[Hg] [facility] 3 18:01:05 Date Recorded Body height Body mass index (BMI) Body weight Systolic blood pressure Diastolic blood pressure Provider Name and Address Organization Details Last Updated DateTime 09/26/2022 166.37 cm 57 kg/m2 071163.1 4 g 139 mm[Hg] 83 mm[Hg] [facility] 3 18:14:18 Social History Question Answer Notes LastModified by Organizat ion Details LastModified Time Tobacco Smoking Status Never Smoker [facility] 02/05/2022 12:29:12 Do You Have An Advance Directive? No Information n ot available 08/10/2021 What Is Your Level Of Alcohol Consumption? Occasional Information not available 08/10/2021 How Many Years Have You Consumed Alcohol? 2 Information not available 08/10/2021 Are You Blind Or Do You Have Difficulty Seeing? No Information n ot available 08/10/2021 What Is Your Level Of Caffeine Consumption? Moderate Information not available 08/10/2021 How Much Tobacco Do You Chew? None Information not available 08/10/2021 In The 14 Days Before Symptom Onset, Have You Had Close Contact With A Laboratory-confirm ed COVID-19 While That Case Was Ill? No Information n ot available 08/10/2021 In The 14 Days Before Symptom Onset, Have You Had Close Contact With A Person Who Is Under Investigation For COVID-19 While That Person Was Ill? No Information not available 08/10/2021 Have You Been To An Area Known To Be High Risk For COVID-19? No Information not available 08/10/2021 Are You Deaf Or Do You Have Serious Difficulty Hearing? No Information not available 08/10/2021 What Type Of Diet Are You Following? REGULAR Information n ot available 08/10/2021 What Is The Highest Grade Or Level Of School You Have Completed Or The Highest Degree You Have Received? [id number] Information not available 08/10/2021 What Is Your Occupation? [employer] Information not available 08/10/2021 Are There Any Guns Present In Your Home? No Information not available 08/10/2021 Do You Use Protection During Sex? No Information not available 08/10/2021 Do You Use Your Seat Belt Or Car Seat Routinely? Yes Information not available 08/10/2021 Do You Have Smoke And Carbon Monoxide Detectors In Your Home? Yes Information not available 08/10/2021 How Much Tobacco Do You Smoke? No Information not available 08/10/2021 Do You Feel Stressed (tense, Restless, Nervous, Or Anxious, Or Unable To Sleep At Night)? [id number] Information not available 08/10/2021 Do You Use Any Illicit Or Recreational Drugs? No Information not available 08/10/2021 Do You Use Sunscreen Routinely? No Information not available 08/10/2021 Have You Used IV Drugs? No Information not available 08/10/2021 Sex: Unknown Functional Status Question Answer Note LastModified by Organizat ion Details LastModified Time Do you have difficulty walking or climbing stairs? No [email or web address] Information not available 02/05/2022 Are you able to walk? YESWOREST Information not available 08/10/2021 Are you able to care for yourself? Yes Information not available 02/05/2022 Do you have difficulty dressing or bathing? No [email or web address] Information not available 02/05/2022 What is your exercise level? Occasional Information not available 08/10/2021 Mental Status None recorded. Family History Nothing Reported. Medical History Condition Response Allergies (Food, seasonal, environmental ) N Other N Drug/Latex Allergies/Reactions Y Blood Transfusion N Breast Cancer N Dermatologic Disorders N Lung Disease N Defects or Inherited Disease N Breast Problem N Gestational Diabetes N Hematologic disorders N Anesthesia Complications N History of STI N Deep Vein Thrombosis N Polycystic ovary syndrome N Anxiety Disorder Y Autoimmune disease N Arthritis N Polyps N Infertility N Acid Reflux (GERD) N History of abnormal pap N Cancer N Varicosities N Stroke N Neurologic/Epilepsy Y Endometriosis N High Cholesterol N Fibromyalgia N Headaches Y Kidney Disease N Heart Problems Y Thyroid Problems N Kidney or Bladder Problems N GI Problems N Eating Disorder N Anemia N Art (IVF or FET) N Psychiatric Illness Y Ovarian Cancer N Diabetes N Pulmonary (TB, Asthma) N Hepatitis/Liver Disease N No Past Medical History N Eczema N Urinary Tract Infection N Abuse/Domestic Violence N Asthma N Trauma/Violence N Depression/ depression Y Heart Disease Y Pre-Eclampsia N Hypertension N Osteoporosis N Thrombophilias N Gynecological History Statement/Question Response Date of LMP 11/22/2021 On BCP's at Conception? N N Was last menstrual period normal Y STIs/STDs N HPV Vaccine Y Duration of Flow (days) 5 Current Control Method BCPs Date of control 08/22/2021 Are cycles usually normal N Frequency of Cycle (Q days) 38 Sexually Active? Y BCPs Menses Monthly N Age of first menstrual cycle 9 Date of Last Pap Smear 08/24/2021 Sexual Problems? N Desired Control Method BCPs LMP Approximate N Obstetrics History GPAL:G 0 P 0 0 0 0 Type Value Living 0 Total 0 Past Encounters Encounter ID Performer Location Encounter Start Date Encounter Closed Date Diagnosis/Indication Diagnosis SNOMED-CT Code Diagnosis ICD10 Code Diagnosis Note [id number] Olive Tuttle , [facility] [address] [address] 08/10/2021 11:00:39 08/10/2021 12:38:00 Secondary amenorrhea 957284485 N91.1 Today we agreed to pursue updated US/Labs since UPT is neg and then RTO for WWE & discussion of these test results. She is in agreement of this plan of care at this time. Time spent in visit is a total of 32 mins with at least 50% of visit consisting of counseling and review of plan of care.Addit ional precaution godwin measures were taken to minimize potential exposure to the Covid-19 virus during this patient s visit, including available hand education professional upon arrive, temperatur e check and being asked a series of screening questions. All staff wore face coverings during this encounter, as well as provided additional cleaning and sanitizing of all surfaces, including countertop s, pens, chairs, door handles, light switches, etc, prior to and following the patient s visit. Irregular periods 808777 07 N92.6 [id number] Owen Helms MD [place] [address] [address] 08/17/2021 13:58:31 08/17/2021 15:08:06 Amenorrhea 28402935 N91.2 [id number] Olive Tuttle [facility] [address] [address] 08/24/2021 11:57:19 08/24/2021 13:39:13 Gynecologic examination 01649459 Z01.419 Take Calcium with Vitamin D 1200mg daily if not receiving in daily diet. It is strongly advised to have an annual flu shot and up can obtain at most pharmacies . If you have not had a TDap shot in the last 10 years you should obtain one as well. Discussed with patient & provided with informatio n regarding Gardisil vaccine to prevent the 4 strains for HPV that cause cervical cancer if under age 26. Encourage safe sexual practices, to use condoms and limit partners if not already in a monogamous relationsh ip. Do monthly self breast exams. Have mammogram yearly or every other year depending on family history. BRCA testing is now available for patients with strong genetic history of female cancer. If interested contact the office. Engage in daily exercise of low impact aerobic exercise 45-60 minutes 4-5 times weekly. Avoid tobacco and illicit drugs as well as using moderation with alcohol intake less than 1-2 8 oz beverages daily. This lifestyle behavior pattern will lead to less health conditions and longer life span. If BMI greater than 25 weight watchers or dietary consult advised. Patient received above instructio ns, and questions have been answered. If you have any questions please call or respond to this email. Patient was made aware of the patient portal and may obtain a paper copy of today's plan if desired. Pap/stdsen tGenetic screen discussed Secondary amenorrhea 156 614073 N91.1 TVUS reviewedLe ft ovarian cysts presentShe has no sx's except for irregular cycle intervals. So we agreed to do 3mos Lo loestrin fe and r/p TVUS in 6-8wks to check on these cysts.She is aware to call sooner if sx's change otherwise can start her OCP & use back up method x 4wks if [place]. [id number] Olive Tuttle , [facility] [address] [address] 10/21/2021 12:16:07 10/21/2021 13:02:14 Cyst of left ovary [id number] 7946032 N83.202 We reviewed TVUS & compared it to her last US 07/2021.It has shown some improvemen t.She is having no pain and periods have returned although somewhat irregular with some spotting occurring despite compliance . Today we discussed options.Sh e would like to avoid surgical interventi on if possible so we agreed to monitor another 6-8wks with r/p US and we will change her BCP then f/u to discuss.If anything changes we discussed ED precaution s and risks of ovarian torsion.Wi ll use back up method with switch in BCP.Unders tands that moving forward an MD consult may be necessary and she is open to this. Demolitionist:Di scussed all control options in great detail. Pt would like to start ocp. She is aware of the risks and benefits. She does not have any medical condition that is contraindi cated with the use of estrogen containing control. Pt will start her pills on the first saturday following the start of her period. She is aware it is not effective for control the first month. She is also aware of the importance of taking at the same time every day. Encouraged use of condoms as the pill does not protect against STD's. Will return in 3 months for med check. Consent was read and signed. Pt verbalized understand ing. Time spent in visit is a total of 30 mins with at least 50% of visit consisting of counseling and review of plan of care. [id number] Owen Helms MD [place] [address],[place] [address] 10/19/2021 14:57:44 10/19/2021 15:37:06 Cyst of right ovary [id number] 4220163 N83.291 N83.292 [id number] Owen Helms MD [place] [address],[place] [address] 12/07/2021 13:57:48 12/07/2021 14:46:09 Cyst of left ovary [id number] N83.202 [id number] lOive Tuttle [facility] [address],[place] [address] 12/12/2021 13:31:02 12/12/2021 14:20:11 Cyst of ovary 89429456 N83.209 Discussed TVUS resultsInc rease in ovarian size but still less than 4cm & no sx's per pt.She opts to r/p US in 6wks and continue on new BC.She understand s that if this cysts/area s of concern remain or increase in size that an MD consult is required after this point.Toapril y we agreed to r/p us x 6wks with ED precaution s. Patient is to contact office or go to nearest ED/Urgent care if fever >/= 100.1, pain, excessive bleeding, unusual drainage or swelling in area of concern; or experienci ng worsening sx's or new onset of concerning sx's. Understand ing verbalized . All questions answered to patient satisfacti on. Time spent in visit is a total of 26 mins with at least 50% of visit consisting of counseling and review of plan of care. Irregular periods 771446 07 N92.6 Doing exceptiona lly well on Nextstilli s.Adequate ly regulated her cycles.Neg dysmenorrh ea.No neg se'sWishes to continue. Vitamin D deficiency 347 62961 E55.9 R/P labsWill determine if need to continue high dose brandyn D therapy. [id number] Owen Helms MD [place] [address],[place] [address] 02/05/2022 12:28:49 02/05/2022 13:38:31 Cyst of left ovary 7929312522 [id number] N83.292 [id number] Owen Helms MD [place] [address] [address] 02/21/2022 14:58:12 02/21/2022 16:18:12 Mass of ovary 021760749 R19.09 this patient is a 22-year-ol d female with ovarian cysts and irregular bleeding. She has some findings on her ovaries there are unusual. She has a couple of solid lesions. I believe they are benign. Given her age they are almost certainly benign, however, I recommende d that we continue to follow these. She return in 3 months for repeat ultrasound . Talked about polycystic ovarian syndrome. We spent over 40 minutes face-to-fa ce. Talked about prevention of endometria l cancer. Talked about the pathophysi ology of polycystic ovarian syndrome. Talked about her current treatment. We talked about spironolac tone. Talked about her still some. Talked about her acne and how OCPs combined hormone and metformin lower androgens and how spironolac tone works for stemming the progressio n of her hirsutism. She will follow-up in 3 months for pelvic ultrasound and to see me. [id number] Owen Helms MD [place] [address],[facility] [place] [address] 05/21/2022 16:49:55 05/21/2022 17:59:03 Cyst of left ovary [id number] N83.292 Ultrasound scan abnormal [id number] R93.89 [id number] Owen Helms MD [place] [address],[facility] [place] [address] 05/23/2022 17:44:05 05/25/2022 14:21:42 Cyst of ovary 74843138 N83.209 this patient is a 22-year-ol d female presents for follow-up on ovarian mass. She has a vascular ovarian mass that has persisted over several months. It is a concern. It is irregular and vascular. We have agreed to remove the lesion. It may be a dermoid. Diagnosis is required here. We need to rule anything life-threa tening. We have agreed to laparoscop ic ovarian cystectomy . We spent over 40 minutes face-to-fa ce. More than 50% was counseling . We made a decision to perform surgery. Talked about risk in detail. Talked about alternativ es. Reviewed the ultrasound results together. I showed her images. [id number] Owen Helms MD [place] [address] [address] 09/12/2022 17:51:59 09/13/2022 15:07:03 Cyst of ovary 56648556 N83.209 this patient is a 22-year-ol d female who has a painful ovarian cyst. We have agreed to perform laparoscop ic right ovarian cystectomy . She understand s risks, benefits, and alternativ es. She has completed the informed consent process and is ready to proceed. [id number] Owen Helms MD [place] [address] [address] 09/21/2022 09:54:23 09/21/2022 10:14:18 [id number] Owen Helms MD [place] [address] [address] 09/26/2022 17:50:06 09/27/2022 10:52:03 Postoperative care 788742430 Z48.89 THIS PATIENT IS A 22-YEAR-OL D FEMALE WHO PRESENTS FOR POSTOP FOLLOW-UP. SHE IS POSTOP LEFT SALPINGECT MELISSA AND OVARIAN CYSTECTOMY . SHE ALSO HAD A tubal dye study. She had a left hydrosalpi nx and a blunted clubbed right fallopian tube. Dye could not be passed by the right tube and the left tube was excised. She has a limited possibilit y of getting . We discussed these findings and their implicatio ns. We discussed future . We discussed reproducti ve technology . She will follow-up as needed. Her incisions are clean dry and intact but there is some skin sensitivit y to the glue. She was given recommenda tions. Health Concerns Section Related Observation LastModified by Organization Detai ls LastModified Time None Recorded Concern Status LastModified by Organization Details LastModified Time None Recorded Advance Directives Directive N: Payers Encounter Date Sequence Insurance Name Policy Number Policy Patel Covered Member ID Aptel Member ID Guarantor Name 05/21/2022 1 [place] [id number] La Arcos Mason [id number] La Arcos Mason 05/21/2022 2 [employer]PPO) [facility] Liliana Josselyn Mason [id number] La Arcos Mason 05/23/2022 1 [place] [id number] La Josselyn Mason [id number] La Arcos Mason 05/23/2022 2 [employer]PP[employer] BH[facility]SP Liliana L Mason [id number] La Arcos Mason 09/12/2022 1 [place] [id number] La Josselyn Mason [id number] La L Mason 09/12/2022 2 [employer]PPO) [facility] Liliana L Mason [id number] La Arcos Mason 09/19/2022 1 [place] [id number] La Josselyn Mason [id number] La Arcos Mason 09/19/2022 2 [employer]PPO) [facility] Liliana L Mason [id number] La Arcos Mason 09/26/2022 1 [place] [id number] La Josselyn Mason [id number] La Arcos Mason 09/26/2022 2 [employer] [facility]PPO) [facility] [id number] La Josselyn Mason Notes Date Note Type Note Provider Name and Address Organization Details Recorded Time 05/23/2022 text/html this patient is a 22-year-old female presents for follow-up on ovarian mass. She has a vascular ovarian mass that has persisted over several months. It is a concern. It is irregular and vascular. We have agreed to remove the lesion. It may be a dermoid. Diagnosis is required here. We need to rule anything life-threatening. We have agreed to laparoscopic ovarian cystectomy. We spent over 40 minutes [id number]. More than 50% was counseling. We made a decision to perform surgery. Talked about risk in detail. Talked about alternatives. Reviewed the ultrasound results together. I showed her images. Owen Helms MD [address], [place], [address], [facility] 05/24/2022 22:03:52 09/12/2022 text/html Her this patient is a 22-year-old female with a painful ovarian cyst. We have agreed to perform laparoscopic ovarian cystectomy. She understands the procedure. The patient understands the procedure. The procedure was described to the patient in great detail. the patient also understands the risks. The risks were also explained in detail. She understands that injuries May occur during surgery. She understands these injuries can result in hospitalization, more surgery, and severe illness. She understands there is risk of hemorrhage and infection. Owen Helms MD [address], [place], [address], [facility] 09/12/2022 22:08:39 09/26/2022 text/html THIS PATIENT IS A 22-YEAR-OLD FEMALE WHO PRESENTS FOR POSTOP FOLLOW-UP. SHE IS POSTOP LEFT SALPINGECTOMY AND OVARIAN CYSTECTOMY. SHE ALSO HAD A tubal dye study. She had a left hydrosalpinx and a blunted clubbed right fallopian tube. Dye could not be passed by the right tube and the left tube was excised. She has a limited possibility of getting . We discussed these findings and their implications. We discussed future . We discussed reproductive technology. She will follow-up as needed. Her incisions are clean dry and intact but there is some skin sensitivity to the glue. She was given recommendations. Owen Helms MD [address], [place], [address], [facility] 09/26/2022 18:58:58 OBGyn Episode No OBEpisode recorded.
--- OUTSIDE RECORDS SUMMARY | 2024-10-21 16:31 | XMS_ITS | Clinical Summary ---
Author Organization [facility] [address] Address [address] [place] [address] Care Team Providers Care Fraternity Adviser Name Role Phone Unavailable Primary Care Provider Unavailabl e Source Comments [facility] [address],non-owned Affiliates and Associated Physician Practices is amultiple site organization consisting of ambulatory clinics and hospital sitesin [place], [place], [place] and [place]. This disclosure is being madepursuant to the Care Everywhere program and may not contain all information available regarding this patient. Last updated 18.[facility] [address] Social History Tobacco Use Types Packs/Day Years Used Date Smoking Tobacco: Never Assessed Comments Unknown Sex and Gender Information Value Date Recorded Sex Assigned at Not on file Legal Sex Female 3:10 PM CDT Gender Identity Not on file Sexual Orientation Not on file Plan of Treatment Health Maintenance Due Date Last Done Comments HIV SCREENING 2014 HPV VACCINE (1 - 3-dose series) 2014 CHLAMYDIA/GONORRHEA SCREENING 2015 HEPATITIS C SCREENING 01/18/2017 DTAP/TDAP/TD VACCINES (1 - Tdap) 2018 HEPATITIS B VACCINE (1 of 3 - 19+ 3-dose series) 2018 COVID-19 VACCINE (3 - season) 2024 09/03/2020, 08/06/2020 DEPRESSION SCREENING 06/24/2024 INFLUENZA VACCINE (Season Ended) 2025 04/07/2019, 04/02/2019, 03/28/2018, Additional history exists ZOSTER VACCINE (1 of 2) 2049 HIB VACCINE Aged Out No longer eligi ble based on patient's age to complete this topic MENINGOCOCCAL (Group B) VACCINE SHARED DECISION-MAKING Aged Out No longer eligible based on patient's age to complete this topic MENINGOCOCCAL GROUPS A/C/Y/W VACCINE Aged Out No longer eligible based on patient's age to complete this topic PNEUMOCOCCAL VACCINE Aged Out No long er eligible based on patient's age to complete this topic
== END 2024-10-21 16:37 | disposition home or self-care (01) ==
PROVIDERS: Emergency Provider Registered Nurse
DX: H66.92 Otitis media, unspecified, left ear (principal); F17.290 Nicotine dependence, other tobacco product, uncomplicated; F12.90 Cannabis use, unspecified, uncomplicated; F41.9 Anxiety disorder, unspecified; F32.A Depression, unspecified
CPT/HCPCS: 87081; 87880; 99213; G0463

== ENCOUNTER 2024-10-31 12:25 | Emergency (ER) | payer BC, OTHER, SELFPAY ==
[2024-10-31 12:40] VITALS: BP 134/50; PULSE 94; RESP 18; TEMP 36.5; O2SAT 100
--- NOTE | 2024-10-31 13:18 | ED.GENADULT ---
HPI - General Adult General Chief complaint: Upper Respiratory Infection Stated complaint: Ear Pain/Sore Throat/ Eye Irritation Time Seen by Provider: 10/31/24 13:18 Source: patient Mode of arrival: ambulatory Limitations: no limitations History of Present Illness HPI narrative: 44-year-old female patient presents complaints of bilateral ear appeared in for throat for the last week and a half to 2 weeks. Patient was seen at [facility] with symptoms 1st started was given cefdinir for ear infection. Patient states she feels like she has had no relief since being on the antibiotic and continues to have ear pain. Patient states over the past week she has had increase in sore throat pain. Patient states she has was concerned could be an allergic reaction so she did take some Benadryl yesterday. Related Data Home Medications ?Medication ?Instructions ?Recorded ?Confirmed ?Last Taken ?Type aripiprazole 15 mg tablet 15 mg PO DAILY 09/10/22 07/22/23 09/19/22 05:00 History escitalopram oxalate 10 mg tablet 10 mg PO DAILY 09/10/22 07/22/23 09/19/22 05:00 History Allergies Allergy/AdvReac Type Severity Reaction Status Date / Time Penicillins Allergy Severe hives Verified 10/31/24 12:54 Review of Systems Review of Systems: CONSTITUTIONAL: Denies fever, chills, or sweats. EYES: Denies visual changes, redness, or discharge. ENT: Denies rhinorrhea, congestion, Positive sore throat, and otalgia. CARDIOVASCULAR: Denies chest pain, palpitations, or edema. RESPIRATORY: Denies cough or dyspnea. GASTROINTESTINAL: Denies abdominal pain, nausea, vomiting, or diarrhea. GENITOURINARY: Denies dysuria or hematuria. SKIN: Denies rash or itching. MUSCULOSKELETAL: Denies back pain, joint pain, or myalgia. NEUROLOGIC: Denies headache, numbness, or weakness. PSYCHIATRIC: Denies anxiety or depression. [facility] Past Medical History Medical History Bipolar disorder UTI (urinary tract infection) Anxiety and depression Hidradenitis suppurativa Hx of migraines SVT (supraventricular tachycardia) Surgical History Surgical History History of loop recorder has been removed History of placement of ear tubes History of tonsillectomy H/O cardiac radiofrequency ablation Hx of cholecystectomy Social History Social History Smoking status: Current every day smoker Tobacco type: e-cigarettes/vaping Alcohol intake: current Drinks per week: 2 Substance use: current Substance use type: marijuana Last use: very seldom Living arrangements: with friend(s) Additional living arrangements comments: BOYFRIEND Gender identity (if verbalized by the patient): Female Spiritual care concerns: No Comments At the time of my signature I agree with nursing past medical history, surgical, social, and family history. There is no relevant family history pertinent to the presenting complaint. Exam Narrative: GENERAL: Well-appearing, well-nourished, and in no acute distress. HEAD: Normocephalic, atraumatic. EYES: PERRLA and EOMI. ENT: Nares clear, no rhinorrhea or epistaxis. Mucous membranes moist. posterior pharynx with no erythema, tonsillar enlargement, exudates or lesions present. left TM does appear to have some erythema and bulging noted. NECK: Supple. No lymphadenopathy CHEST: Clear to auscultation. No respiratory distress. HEART: Regular rate and rhythm. No murmur heard. Normal peripheral pulses. ABDOMEN: Soft, nontender, nondistended, normal active bowel sounds. EXTREMITIES: Normal range of motion. No edema. SKIN: Warm, dry, no rash. NEURO: No focal deficits. Alert and oriented x3. Course Course Level of Care: Express Care Visit Vital Signs Vital signs: Vital Signs Temperature 36.5 C 10/31/24 12:40 Pulse Rate 94 10/31/24 12:40 Respiratory Rate 18 10/31/24 12:40 Blood Pressure 134/50 L 10/31/24 12:40 Pulse Oximetry 100 10/31/24 12:40 Temperature 36.5 C 10/31/24 12:40 Pulse Rate 94 10/31/24 12:40 Respiratory Rate 18 10/31/24 12:40 Blood Pressure 134/50 L 10/31/24 12:40 Pulse Oximetry 100 10/31/24 12:40 Vital signs reviewed Medical Decision Making MDM Narrative Medical decision making narrative: plank information is discharged home with antibiotics for left-sided otitis media. Discussed with patient we will switch her to azithromycin but she will need to stop the esitlopram medications while she is on the antibiotic and she can started up once antibiotic has been completed. Patient verbalized understanding denies any other questions or concerns at this time. Differential Diagnosis Differential Diagnosis: Differential diagnosis: Allergic rhinitis, chronic sinusitis, tonsillitis, acute sinusitis, infectious mononucleosis, seasonal influenza, pertussis, diphtheria, meningococcal disease, viral syndrome, viral bronchitis, RSV, COVID-19 Vital Signs Vital Signs: Vital Signs Temperature 36.5 C 10/31/24 12:40 Pulse Rate 94 10/31/24 12:40 Respiratory Rate 18 10/31/24 12:40 Blood Pressure 134/50 L 10/31/24 12:40 Pulse Oximetry 100 10/31/24 12:40 Temperature 36.5 C 10/31/24 12:40 Pulse Rate 94 10/31/24 12:40 Respiratory Rate 18 10/31/24 12:40 Blood Pressure 134/50 L 10/31/24 12:40 Pulse Oximetry 100 10/31/24 12:40 Critical Care Time Critical Care Time Critical Care Time: No Discharge Plan Discharge Clinical Impression: Acute left otitis media Pharyngitis Qualifiers: Pharyngitis/tonsillitis etiology: unspecified etiology Qualified Code(s): J02.9 - Acute pharyngitis, unspecified Patient Disposition: Home Condition: Stable Instructions: Antibiotic Form, Ear Infection (GEN) Additional Instructions: An ear infection is also called otitis media. An ear infection may be caused by blocked or swollen eustachian tubes. Eustachian tubes connect the middle ear to the back of the nose and throat. They drain fluid from the middle ear. With an ear infection, fluid builds up and is infected by germs. The germs grow easily in fluid trapped behind the eardrum. DISCHARGE INSTRUCTIONS: Call 911 or have someone call 911 for the following: You have a seizure. Return to the emergency department if: You have a fever and a stiff neck. Contact your healthcare provider if: Your ear pain gets worse or does not go away, even after treatment. The outside of your ear is red or swollen. You are vomiting or have diarrhea. You have fluid coming from your ear. You have questions or concerns about your condition or care. Medicines: Acetaminophen decreases pain and fever. It is available without a doctor's order. Ask how much to take and how often to take it. Follow directions. Read the labels of all other medicines you are using to see if they also contain acetaminophen, or ask your doctor or pharmacist. Acetaminophen can cause liver damage if not taken correctly. Do not use more than 4 grams (4,000 milligrams) total of acetaminophen in one day. NSAIDs , such as ibuprofen, help decrease swelling, pain, and fever. This medicine is available with or without a doctor's order. NSAIDs can cause stomach bleeding or kidney problems in certain people. If you take blood thinner medicine, always ask your healthcare provider if NSAIDs are safe for you. Always read the medicine label and follow directions. Ear drops help treat your ear pain. Antibiotics help treat a bacterial infection that caused your ear infection. Take your medicine as directed. Contact your healthcare provider if you think your medicine is not helping or if you have side effects. Tell him or her if you are allergic to any medicine. Keep a list of the medicines, vitamins, and herbs you take. Include the amounts, and when and why you take them. Bring the list or the pill bottles to follow-up visits. Carry your medicine list with you in case of an emergency. Prevent an ear infection: Wash your hands often. Use soap and water. Wash your hands after you use the bathroom, change a child's diapers, or sneeze. Wash your hands before you prepare or eat food. Handwashing Stay away from people who are ill. Some germs are easily and quickly spread through contact. Patient Language: Mozambican Prescriptions: New azithromycin 500 mg tablet See Rx Instructions .ROUTE .COMPLEX Qty: 3 0RF Rx Instructions: For 500 mg dose pack: take 500 mg once daily for 3 days No Action escitalopram oxalate 10 mg Tablet 10 mg PO DAILY aripiprazole 15 mg Tablet 15 mg PO DAILY Follow-up/Referrals: PHYSICIAN,CELERY PACKER [Primary Care Provider] - Time of Disposition: 13:30
== END 2024-10-31 13:33 | disposition home or self-care (01) ==
PROVIDERS: Emergency Provider Nurse Practitioner Family
DX: H66.92 Otitis media, unspecified, left ear (principal); J02.9 Acute pharyngitis, unspecified; F17.290 Nicotine dependence, other tobacco product, uncomplicated; F12.90 Cannabis use, unspecified, uncomplicated; F41.9 Anxiety disorder, unspecified; F32.A Depression, unspecified
CPT/HCPCS: 99213; G0463

== ENCOUNTER 2025-03-20 16:28 | Emergency (ER) | payer BC, SELFPAY ==
--- NOTE | ~2025-03-20 | XR_ITS ---
EXAMINATION: XR abdomen/kub 1V, 03/20/2025 16:55 CDT HISTORY: bilateral lower abdomen/back pain r/o constipation COMPARISON: No comparisons available. Technique: 3 view. Findings: Bowel gas pattern unremarkable. No obstruction. No free air. No abnormal calcifications No acute osseous abnormality. Impression: 1. No acute abnormality. Reviewed, dictated and finalized at location P. Impression: 1. No acute abnormality.
--- NOTE | 2025-03-20 16:30 | ED_ITS ---
HPI - Female Genitourinary General Chief complaint: Abdominal Pain Stated complaint: Abdominal pain/Urinary Irritation Time Seen by Provider: 03/20/25 16:30 Source: patient Mode of arrival: ambulatory Limitations: no limitations History of Present Illness HPI Narrative: La is a 25-year-old female patient presenting to the clinic today with complaints of lower abdominal discomfort, nausea, low back pain, and possible UTI x6 days. She reports she has noticed seeing urinary frequency and some cloudiness in her urine. Has an aching pain to the lower abdominal and low back- rating it currently a 3/10. Has take Pepto-Bismol and Tylenol for her symptoms with relief. Last bowel movement was today and normal for the patient. No blood in her stool. Denies any vaginal discharge. Denies any concern for STIs. Last menstrual period was on March 02. States earlier this week she was having some diarrhea. Denies any fevers, chills, or body aches. History of PCOS/ovarian cyst. Related Data Home Medications ?Medication ?Instructions ?Recorded ?Confirmed ?Last Taken ?Type aripiprazole 15 mg tablet 15 mg PO DAILY 09/10/2206/2509/19/22 05:00 History escitalopram oxalate 10 mg tablet 10 mg PO DAILY 09/1003/20/25 09/19/22 05:00 History celecoxib 200 mg capsule mg 03/20/25 Unknown History Allergies Allergy/AdvReac Type Severity Reaction Status Date / Time Penicillins Allergy Severe hives Verified 10/31/24 12:54 Review of Systems Review of Systems: Pertinent positives per HPI. Patient denies any fever, chills, rash, headache, visual changes, dizziness, cough, runny nose, sore throat, shortness of breath, chest pain, palpitations, nausea, vomiting, diarrhea, constipation. [facility] Past Medical History Medical History Bipolar disorder UTI (urinary tract infection) Anxiety and depression Hidradenitis suppurativa Hx of migraines SVT (supraventricular tachycardia) Surgical History Surgical History History of loop recorder has been removed History of placement of ear tubes History of tonsillectomy H/O cardiac radiofrequency ablation Hx of cholecystectomy Social History Social History Smoking status: Current every day smoker Tobacco type: e-cigarettes/vaping Alcohol intake: current Drinks per week: 2 Substance use: current Substance use type: marijuana Last use: very seldom Living arrangements: with friend(s) Additional living arrangements comments: BOYFRIEND Gender identity (if verbalized by the patient): Female Spiritual care concerns: No Comments At the time of my signature, I reviewed and agree with the nursing past medical, surgical, social, and family history. There is no relevant family history pertinent to the patient complaint. Exam Narrative: General: Well-developed, morbidly obese, in no apparent distress. Head: Normocephalic, atraumatic. Cardio: Regular rate and rhythm, s1 and s2 normal, no murmur appreciated. Resp: Clear to auscultation bilaterally, no rhonchi, rales, wheezing or rubs. Abdomen: Soft, pliable, bowel sounds present in all quadrants, bilateral lower abdomen tender to palpation, no organomegly, no CVAT tenderness. : Deferred Course Course Emergency Course: Portions of this record may have been created with voice recognition software. Level of Care: Express Care Visit Vital Signs Vital signs: Vital Signs Temperature 36.9 C 03/20/25 16:37 Pulse Rate 100 03/20/25 16:37 Respiratory Rate 18 03/20/25 16:37 Blood Pressure 147/74 H 03/20/25 16:37 Pulse Oximetry 98 03/20/25 16:37 Oxygen Delivery Room Air 03/20/25 16:37 Temperature 36.9 C 03/20/25 16:37 Pulse Rate 100 03/20/25 16:37 Respiratory Rate 18 03/20/25 16:37 Blood Pressure 147/74 H 03/20/25 16:37 Pulse Oximetry 98 03/20/25 16:37 Oxygen Delivery Room Air 03/20/25 16:37 Vital signs reviewed MDM - Female Genitourinary MDM Narrative Medical decision making narrative: At the time of visit patient is resting comfortably on the exam table. Patient appears to be nontoxic. Complaints of lower abdominal discomfort, nausea, low back pain, and possible UTI x6 days. She reports she has noticed seeing urinary frequency and some cloudiness in her urine. Has an aching pain to the lower abdominal and low back-rating it currently a 3/10. Has take Pepto-Bismol and Tylenol for her symptoms with relief. Last bowel movement was today and normal for the patient. No blood in her stool. Denies any vaginal discharge. Denies any concern for STIs. Last menstrual period was on March 02. States earlier this week she was having some diarrhea. Denies any fevers, chills, or body aches. History of PCOS/ovarian cyst. On exam patient has bilateral lower abdominal tenderness to palpation, no CVAT tenderness, no suprapubic tenderness, bowel sounds present all 4 quadrants, abdomen soft and pliable, Urinalysis dip, bedside test, and KUB ordered. Labs: Urinalysis dip shows no sign of infection or blood. Bedside test was negative. Diagnostics: KUB x-ray was negative in the clinic today Plan: Suspect patient has bilateral lower abdominal pain with nausea. Shared decision-making was performed. Offer to send patient to the ER for further evaluation versus sending her home on and having her follow-up with her PCP on Saturday for further evaluation. Patient declined going to the emergency room at this time and would like to try the nausea medicine and take Tylenol/Motrin as needed for pain. Supportive measures were discussed with the patient and they voiced understanding discharge instructions and agrees to treatment plan. Return precautions reviewed Differential Diagnosis Differential diagnosis: Likely urinary tract infection, cystitis and other (Abdominal pain, constipation, diverticulitis, polycystic ovarian syndrome, ovarian cyst, appendicitis, gastroenteritis, pyelonephritis) Lab Data Labs: Lab Results 03/20/25 Range/Units 16:47 POC Urine Color Yellow POC Urine Clarity Cloudy POC Urine pH 7.0 POC Ur Specif [place] 1.020 POC Urine Protein Negative (Negative) POC Ur Glucose (UA) Negative (Negative) POC Urine Ketones Negative (Negative) POC Urine Blood Negative (Negative) POC Urine Nitrite Negative (Negative) POC Urine Bilirubin Negative (Negative) POC Urine Urobilinogen 0.2 POC U Leukocyte Esteras Negative (Negative) Imaging Data Radiologist's impression: ITS Impressions Abdomen X-Ray 03/20/25 17:06 Impression: 1. No acute abnormality. Discharge Plan Discharge Clinical Impression: Bilateral lower abdominal pain, Nausea Patient Disposition: Home Condition: Stable Instructions: Antibiotic Form, Acute Nausea and Vomiting (ED), Abdominal Pain (ED) Additional Instructions: KUB x-rays negative for any acute abdomen abnormality, Urinalysis is negative for any sign of infection or blood Bedside test was negative. Take prescription medications only as prescribed-ondansetron Increase fluids and stay well hydrated May take Tylenol or motrin as directed on bottle for pain/fever BRAT diet for diarrhea Clear liquids x 24 hours then advance as tolerated for nausea/vomiting Go to the ED if you develop a worsening in your condition- high fever not controlled by Tylenol or Motrin, dehydration, weakness, lethargy, shortness of breath, or chest pain. Follow up with your PCP in 3-5 days if symptoms persist. Patient Language: Portuguese Prescriptions: New ondansetron 8 mg tablet,disintegrating 8 mg PO Q8H PRN (Reason: nausea and vomiting) 3 Days Qty: 10 0RF No Action celecoxib 200 mg capsule escitalopram oxalate 10 mg Tablet 10 mg PO DAILY aripiprazole 15 mg Tablet 15 mg PO DAILY Follow-up/Referrals: UNKNOWN,DOCTOR [Non-Staff] Time of Disposition: 17:13 Quality NIHSS Nursing Documentation ED NIHSS nursing documentation: reviewed/agree
--- OUTSIDE RECORDS SUMMARY | 2025-03-20 16:32 | XMS_ITS | Clinical Summary ---
Author Organization [facility] Address [address] [place] [address] Care Team Providers Care Zinc Skimmer Name Role Phone Kelle Johnston Primary Care Provider [phone] Desiree Gagnon MD Unavailable [phone] Allergies Active Allergy Reactions Criticality Noted Date [...] on file Legal Sex Female 1:59 AM GROCERY SPECIALIST Gender Identity Not on file Sexual Orientation [...] (242 lb 8.1 oz) 07/15/2015 4:06 PM GROCERY SPECIALIST Height 167 cm (5' 5.75) 07/15/2015 4:06 PM GROCERY SPECIALIST Body Mass Index 39.44 07/15/2015 4:06 PM GROCERY SPECIALIST Plan of Treatment Health Maintenance Due Date Last Done Comments Cervical Cancer Screening 1999 Depression Screening 1999 Hepatitis C Screening 1999 Regular Well Visit/Exam 18-64 2017 DTaP/Tdap/Td Vaccine (7 - Td or Tdap) 02/01/2020 01/31/2010, 01/26/2004, 05/13/2000, Additional history exists Covid-19 Vaccine (2024-2 6 season) 2025 09/03/2020, 07/30/2020 Influenza Vaccine (#1) 2025 9, 04/02/2019, 03/28/2018, Additional history exists Hepatitis B Screening Completed 1999 , 1999, 1999 Pneumococcal vaccine <65 Completed 005, 05/13/2000, 01/26/2000, Additional history exists HPV Vaccines Completed 06/05/2010, 01/22, 11/28/2009 Varicella Vaccines Completed 04/28/2014, 01/26/2000 [facility] [employer] Address: [address] [place] [address] DearJane MD [employer] [facility] [employer] [facility] [employer] Address: [address] [place] [address] Care Teams Zinc Skimmer Relationship Specialty Start Date End Date Kelle Johnston [address] [place] [id number] PCP - General Family Medicine 04/29/18 Desiree Gagnon MD [phone] [address] Referring Physician Neurology 10/17/18
--- OUTSIDE RECORDS SUMMARY | 2025-03-20 16:32 | XMS_ITS | Data Portability ---
Author Organization [facility] [place] Address [address] [place] [address] [place] [address] Assessment No assessment recorded. Plan of Treatment Reminders Order Date Submit Date Provider Last Modified By Organization Details Last Modified Time Details Appointments None recorded. Lab None recorded. Referral None recorded. Procedures None recorded. Surgeries laparoscopi c ovarian cystectomy (SURG) 2021 023 [facility] Surgery [facility], [address], [place], [address], 19:00:47 Imaging US, transvagina l 2021 022 [email or web address] [place], [address], [address], [place], [address], 17:59:03 Medication Orders None recorded. Patient TargetsNo targets recorded. Patient InstructionsNo instructions recorded. Reason for Referral None Reported. Results Created Date Observation Date Name Description Value Unit Range Abnormal Flag Note LastModifiedBy Organization Detail LastModifiedTime 05/21/2005/21/2022 US, trans vagin al No observ ation record ed. [email or web address] [facility] [address], [place], [address], 05/21/2022 17:49:55 05/21/20 22 05/21/2022 US, trans vagin al No observ ation record ed. [email or web address] [facility] [address], [place], [address], 05/21/2022 22:21:37 Result Notes None recorded. Procedures Surgical History Date Name Laterality Status Provider Name and Address Organization Details Recorded Time 09/20/19 23 LAPAROSCOPIC OVARIAN CYSTECTOMY (SURG) completed [facility] 09/27/2022 11:10:31 09/20/19 23 LAPAROSCOPIC OVARIAN CYSTECTOMY (SURG) completed [facility] 09/27/2022 11:10:07 08/25/19 22 Date of Last Pap Smear completed [facility] 10/21/2021 08:50:27 06/24/19 21 fluoroscopy of heart for checking of position of cardiac monitoring implant position completed [facility] 10/21/2021 12:31:52 06/24/19 20 Unlisted px femur/knee completed [facility] 10/21/2021 12:31:23 06/24/19 20 cholecystectomy completed [facility] 10/21/2021 12:31:37 06/24/19 15 procedure on forearm completed [facility] 10/21/2021 12:32:25 06/24/19 04 Tonsillectomy completed [facility] 10/21/2021 12:30:30 Tonsillectomy completed [facility] 12/12/2021 13:37:53 Imaging Results None recorded. Procedure Notes None recorded. Medical Equipment None Reported. Allergies Allergen ID Allergen Name Allergen Category Reaction Reaction Severity Criticality Documentation Date Start Date Code Code System Note Provider Name and Address Organization Details Recorded Time Penicilli n Not available hives moderate Not available 08/10/2021 80692 RxNorm [facility] 11:22:25 Medications Name Sig Start Date [...] Body mass index (BMI) Body weight Systolic And Diastolic Provider Name and Address Organization Details Last Updated DateTime 09/12/2022 166.37 cm 56.5 kg/m2 745042.37 g 133/83 mm[Hg] Wilma Muñoz [facility] 09/12/2022 18:01:05 Date Recorded Body height Body mass index (BMI) Body weight Systolic And Diastolic Provider Name and Address Organization Details Last Updated DateTime 09/26/2022 166.37 cm 57 kg/m2 531094.14 g 139/83 mm[Hg] Wilma Muñoz [facility] 09/26/2022 18:14:18 Date Recorded Body height Body mass index (BMI) Body weight Systolic And Diastolic Provider Name and Address Organization Details Last Updated DateTime 05/23/2022 166.37 cm 57.4 kg/m2 409848.33 g 137/86 mm[Hg] Wilma [facility] 05/23/2022 18:08:12 Social History Question Answer Notes LastModified by Organizat ion Details LastModified Time Tobacco Smoking Status Never Smoker Jodee Chiu lui, [facility] 02/05/2022 12:29:12 Do You Have An Advance Directive? No Information n ot available 08/10/2021 How Many Years Have You [...] Or The Highest Degree You Have Received? [id number] Information not available 08/10/2021 Are There Any [...] IV Drugs? No Information not available 08/10/2021 Do You Have Difficulty Walking Or Climbing Stairs? No [email or web address] Information not available 02/05/2022 Sex: Unknown Functional Status Question Answer Note LastModified by Organizat ion Details LastModified Time Do you use any illicit or recreational drugs? No Information not available 08/10/2021 What is your level of alcohol consumption? Occasional Information not available 08/10/2021 Are you able to walk independently without assistance or assistive devices? YESWOREST Information not available 08/10/2021 Are you able to care for yourself independently? 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 No [email or web address] Information not available 02/05/2022 What is your exercise level? Occasional Information not available 08/10/2021 Mental Status Question Answer Note LastModified by Organization D etails LastModified Time Do you feel stressed (tense, restless, nervous, or anxious, or unable to sleep at night)? [id number] Information not available 08/10/2021 Family History Nothing Reported. Medical History Condition Response Allergies (Food, seasonal, environmental ) N Other N Blood Transfusion N Drug/Latex Allergies/Reactions Y Breast Cancer N Dermatologic Disorders N Lung Disease N Defects or Inherited Disease N Breast Problem N Gestational Diabetes N Hematologic disorders N Anesthesia Complications N History of STI N Deep Vein Thrombosis N Polycystic ovary syndrome N Anxiety Disorder Y Autoimmune disease N Arthritis N Infertility N Polyps N Acid Reflux (GERD) N History of abnormal pap N Cancer N Stroke N Varicosities N Neurologic/Epilepsy Y Endometriosis N High Cholesterol N Headaches Y Fibromyalgia N Kidney Disease N Heart Problems Y Kidney or Bladder Problems N Thyroid Problems N GI Problems N Eating Disorder [...] Diagnosis SNOMED-CT Code Diagnosis ICD10 Code Diagnosis IMO Codes Diagnosis Note [id number] Olive Tuttle , [facility] [address] [address] 08/10/2021 11:00:39 08/10/2021 12:38:00 Secondary amenorrhea 742937362 N91.1 Today we agreed to pursue updated [...] this patient s visit, including available hand cashier general upon arrive, temperatur e check and being asked a series of screening questions. All staff wore face coverings during this encounter, as well as provided additional cleaning and sanitizing of all surfaces, including countertop s, pens, chairs, door handles, light switches, etc, prior to and following the patient s visit. Irregular periods 601042 07 N92.6 [id number] Owen Helms MD [facility] [address] [address] 08/17/2021 13:58:31 08/17/2021 15:08:06 Amenorrhea 84589655 N91.2 [id number] Olive Tuttle , [facility] [address] [address] 08/24/2021 11:57:19 08/24/2021 13:39:13 Gynecologic examination 46819205 Z01.419 Take Calcium with Vitamin D 1200mg [...] Pap/stdsen tGenetic screen discussed Secondary amenorrhea 156 928643 N91.1 TVUS reviewedLe ft ovarian cysts presentShe has no sx's except for irregular cycle intervals. So we agreed to do 3mos Lo loestrin fe and r/p TVUS in 6-8wks to check on these cysts.She is aware to call sooner if sx's change otherwise can start her OCP & use back up method [place] 4wks [place]. [id number] Olive Jessegalileo , [facility] [address] [address] 10/21/2021 12:16:07 10/21/2021 13:02:14 Cyst of left ovary 0862507892 0295738 N83.202 We reviewed TVUS & compared it [...] necessary and she is open to this. Linotype Mechanic:Di scussed all control options in great detail. [...] counseling and review of plan of care. [id number] Owen Helms MD [facility] [address] [address] 10/19/2021 14:57:44 10/19/2021 15:37:06 Cyst of right ovary 9833700075 2941793 N83.291 N83.292 [id number] Owen Helms MD [facility] [address] [address] 12/07/2021 13:57:48 12/07/2021 14:46:09 Cyst of left ovary 9110334980 6816833 N83.202 [id number] [facility] [address] [address] 12/12/2021 13:31:02 12/12/2021 14:20:11 Cyst of ovary 11294807 N83.209 Discussed TVUS resultsInc rease in ovarian [...] review of plan of care. Irregular periods 677472 07 N92.6 Doing exceptiona lly well on Nextstilli s.Adequate ly regulated her cycles.Neg dysmenorrh ea.No neg se'sWishes to continue. Vitamin D deficiency 347 23115 E55.9 R/P labsWill determine if need to continue high dose brandyn D therapy. [id number] Owen Helms MD [facility] [address] [address] 02/05/2022 12:28:49 02/05/2022 13:38:31 Cyst of left ovary 5936669067 9276934 N83.292 [id number] Owen Helms MD [facility] [address] [address] 02/21/2022 14:58:12 02/21/2022 16:18:12 Mass of ovary 848337204 R19.09 this patient is a 22-year-ol d [...] for pelvic ultrasound and to see me. [id number] Owen Helms MD [facility] [address] [address] 05/21/2022 16:49:55 05/21/2022 17:59:03 Cyst of left ovary 8500819088 [id number] N83.292 Ultrasound scan abnormal 890727436 R93.89 [id number] Owen Helms MD [facility] [address] [place] [address] 05/23/2022 17:44:05 05/25/2022 14:21:42 Cyst of ovary 31540475 N83.209 this patient is a 22-year-ol d [...] Talked about risk in detail. Talked about alternalberto es. Reviewed the ultrasound results together. I showed her images. [id number] Owen Helms MD [facility] [address] [address] 09/12/2022 17:51:59 09/13/2022 15:07:03 Cyst of ovary 84478157 N83.209 this patient is a 22-year-ol d female who has a painful ovarian cyst. We have agreed to perform laparoscop ic right ovarian cystectomy . She understand s risks, benefits, and alternativ es. She has completed the informed consent process and is ready to proceed. [id number] Owen Helms MD [facility] [address] [address] 09/21/2022 09:54:23 09/21/2022 10:14:18 [id number] Owen Helms MD [facility] [address] [address] 09/26/2022 17:50:06 09/27/2022 10:52:03 Postoperative care 938653303 Z48.89 THIS PATIENT IS A 22-YEAR-OL D [...] None Recorded Advance Directives Directive N: Payers Insurance Date Sequence Insurance Name Policy Number Policy Patel Covered Member ID Patel Member ID Guarantor Name 12/07/2021 2 [place] [id number] Liliana Mason [id number] La Mason 02/21/2022 3 [place] [id number] La Mason [id number] La Mason 09/23/2022 1 [place] [id number] La Mason [id number] La Arcos Mason 10/21/2021 2 [employer] - DOS PRIOR TO 20 - [facility] BENEFITS PLAN [id number] Liliana Mason [id number] La Mason 02/21/2022 3 [place] [id number] La Mason [id number] La Mason 08/10/2021 2 [place] [id number] La Mason [id number] La Mason 08/08/2021 1 [employer] - [employer] PREMIERE (PPO) Liliana Mason [id number] La Mason 02/21/2022 1 [place] [id number] La Mason [id number] La Mason 10/19/2021 2 [facility] [facility]PPO) [facility] Lil[facility] [id number] La Mason 02/05/2022 2 [employer] (PPO) [facility] Liliana Mason [id number] La Mason 12/07/2021 2 [employer] - [employer]MIERE (PPO) Liliana Mason [id number] La Mason Notes Date Note Type Note Provider [...] ovarian cystectomy. We spent over 40 minutes lumc-ev-lxlv. More than 50% was counseling. We made a decision to perform surgery. Talked about risk in detail. Talked about alternatives. Reviewed the ultrasound results together. I showed her images. Owen Helms MD [address], [place], [address], [facility] 05/24/2022 22:03:52 09/12/2022 text/html Her this [...] infection. Owen Helms MD [address], [place], [address], [facility] 09/12/2022 22:08:39 09/26/2022 text/html THIS [...] recommendations. Owen Helms MD [address], [place], [address], [facility] 09/26/2022 18:58:58 OBGyn Episode No OBEpisode recorded.
--- OUTSIDE RECORDS SUMMARY | 2025-03-20 16:32 | XMS_ITS | Clinical Summary ---
Author Organization [facility] [employer] Address [address] [place] [address] Care Team Providers Care Dirt Bike Racer Name Role Phone Unavailable Primary Care Provider Unavailabl e Source Comments [facility] [employer],non-owned Affiliates and Associated Physician Practices is amultiple site organization consisting of ambulatory clinics and hospital sitesin [place], [place], [place] and [place]. This disclosure is being madepursuant to the Care Everywhere program and may not contain all information available regarding this patient. Last updated 18.[facility] [employer] Social History Tobacco Use Types Packs/Day Years [...] HPV VACCINE (1 - 3-dose series) 2014 HEPATITIS C SCREENING 01/18/2017 DTAP/TDAP/TD VACCINES (1 - Tdap) 2018 HEPATITIS B VACCINE (1 of 3 - 19+ 3-dose series) 2018 DEPRESSION SCREENING 06/24/2024 COVID-19 VACCINE (3 - 2024-26 season) 2025 09/03/2020, 08/06/2020 INFLUENZA VACCINE (#1) 2025 , 04/02/2019, 03/28/2018, Additional history exists ZOSTER VACCINE [...]
[2025-03-20 16:37] VITALS: BP 147/74; PULSE 100; RESP 18; TEMP 36.9; O2SAT 98
[2025-03-20 16:49] LABS: EDUAAPPEAR Cloudy; EDUABILI Negative (Negative); EDUABLOOD Negative (Negative); EDUACOLOR1 Yellow; EDUAGLUCOSE Negative (Negative); EDUAKETONE Negative (Negative); EDUALEUKO Negative (Negative); EDUANITRATE Negative (Negative); EDUAPH 7.0; EDUAPROTEIN Negative (Negative); EDUASPGRAVITY 1.020; EDUAUROBILI 0.2
--- NOTE | 2025-03-20 17:19 | PC.NURSE ---
Urine preg neg/
== END 2025-03-20 17:20 | disposition home or self-care (01) ==
PROVIDERS: Emergency Provider Nurse Practitioner Family
DX: R10.31 Right lower quadrant pain (principal); R10.32 Left lower quadrant pain; R11.0 Nausea; F17.290 Nicotine dependence, other tobacco product, uncomplicated; F12.90 Cannabis use, unspecified, uncomplicated; F41.9 Anxiety disorder, unspecified; F32.A Depression, unspecified; E28.2 Polycystic ovarian syndrome
CPT/HCPCS: 74018; 81003; 99213; G0463